=== PATIENT | female | born 1965 ===

== ENCOUNTER → 2025-04-01 13:39 | Outpatient (REF) | payer BC, SELFPAY | LOC: WDC 13:39 | PROVIDERS: ATTENDING PHYSICIAN Registered Nurse | DX: M85.839 Other specified disorders of bone density and structure, unspecified forearm (principal); Z12.31 Encounter for screening mammogram for malignant neoplasm of breast | CPT/HCPCS: 77063; 77067; 77080 ==

== ENCOUNTER → 2025-04-07 12:49 | Outpatient (REF) | payer BC, SELFPAY | LOC: RSP 12:49 | PROVIDERS: ATTENDING PHYSICIAN Registered Nurse | DX: R06.09 Other forms of dyspnea (principal) | CPT/HCPCS: 94727; 94729; 88738; 94010 ==

== ENCOUNTER 2025-04-25 11:27 | Inpatient (IN) | payer BC, SELFPAY ==
[2025-04-25] VITALS (11 sets, daily range): BP systolic 101–163; BP diastolic 60–84; BMI 39.5
--- NOTE | 2025-04-25 05:02 | ED.GENMED ---
History of Present Illness
<Sandrita Mike PA-C - Last Filed: 04/25/25 18:02>
General
Chief Complaint: Abdominal Pain
Source: patient
Exam Limitations: none
Time Seen by Provider: 04/25/25 05:00
Nursing documentation reviewed up to this point in time: agreed with
History of Present Illness
History of Present Illness:
This is a 65 y/o female with a past medical history of hypertension, hyperlipidemia who presents to the emergency department today with concerns of right upper quadrant abdominal pain since yesterday evening. Patient reports that she ate dinner
this evening and later noticed pain in her right abdomen. She thought that this was indigestion and so she took Tums and Pepcid and reported minimal relief. The pain will come and go. She then went to bed and woke up twice with the pain and
noticed that the pain was more constant now. She does report that it radiates to her right back. Denies any flank pain. She denies any hematuria, dysuria. She denies any fevers or chills. She currently denies any chest pain or shortness of
breath. She denies any lightheadedness, dizziness. She does have a past surgical history of gastric sleeve 20 years ago. She denies any history of cardiac disease. Patient states that she had pain similar to this a few years ago but it resolved on
its own.
Review of Systems
<Sandrita Mike PA-C - Last Filed: 04/25/25 18:02>
Review of Systems
All Other Systems: ROS reviewed and negative except as documented in HPI and ROS
Phy Exam
<Sandrita Mike PA-C - Last Filed: 04/25/25 18:02>
Physical Exam
Physical Exam:
General: Patient is well appearing and in no acute distress; non-toxic
Skin: Warm and dry, no rashes or lesions
Head: Normocephalic, atraumatic
Eyes: Sclera non-icteric. EOMs intact.
Cardiac: Regular rate and rhythm, no murmurs
Pulm: Normal respiratory effort, no wheezes, rales, rhonchi
Abdomen: +Hooker sign with guarding, no rebound tenderness; normoactive bowel sounds
Musculoskeletal: No chest wall tenderness to palpation, no palpable crepitus
Neuro: CN II-XII intact, no focal neurologic deficits.
Psychiatric: Appropriate mood and affect.
Course
<Sandrita Mike PA-C - Last Filed: 04/25/25 18:02>
Orders/Labs/Results
Orders:
Orders
04/25/25 04:59
Electrocardiogram (*1) Urgent
Reason for Study: Abdominal Pain
EKG- Treatment ONCE
IV Insert/Care/Rem.- Treatment PRN
04/25/25 05:02
Complete Blood Count/With Diff Urgent
Comprehensive Metabolic Panel Urgent
Lipase Urgent
04/25/25 05:18
Ketorolac [Toradol] 15 mg IV NOW STA
Ondansetron Injectable [Zofran] 4 mg IV NOW STA
04/25/25 05:29
CT Abd/pelvis W Iv Cont Urgent
Comment:
Reason For Exam: right upper quadrant pain
04/25/25 06:25
0.9% Sodium Chloride 500 ml [Nss] 500 ml IV BOLUS
04/25/25 06:48
Piperacillin/Tazo 4.5 Gram [Zosyn] 4.5 gram in 100 ml IV NOW
04/25/25 07:32
US Abdomen Limited Urgent
Reason For Exam: RUQ pain
04/25/25 Lunch
Clear Liquid
At Your Request: Limited Participation
04/25/25 10:46
HYDROmorphone [Dilaudid] 0.5 mg .ROUTE .ST-MED ONE
04/25/25 10:50
HYDROmorphone [Dilaudid] 0.5 mg IV NOW STA
04/25/25 10:58
Admit/Transfer Patient As Directed
Co-Sign Provider:
Level of Care: Inpatient admission
Assign to:: Medical/Surgical
Physician / Group: Devinky/Hospitalist
Diagnosis: Choledocholithiasis
Reason for Hospitalization: Choledocholithiasis
Expected length of stay greater than two midnights?: Yes
ELOS- Estimated Length of Stay in days: 4
I certify the patient meets the requirements for IP care: Yes
PRN Pain Medication Management As Directed
May give lesser potent ordered pain med per pt: Yes
preference::
Protocol:: Medication orders for pain may be administered in a
manner that supports deferring to patient preference
when the pt is:
- Requesting an ordered lesser potent pain medication.
Least to most potent pain medications are defined
as: acetaminophen < NSAID < tramadol < opioids
(morphine, oxycodone, hydromorphone).
- Requesting a lesser dose of the same medication IF
ORDERED.
- Requesting a less intrusive route of administration
if both routes are prescribed by the provider (PO <
IV).
04/25/25 11:02
Code Status As Directed
Resuscitation Status: Full Code
04/25/25 12:16
Bisacodyl [Dulcolax] 10 mg RECTAL [id number] PRN
Docusate W/Senna [Senokot-S] 1 tablet PO BIDPRN PRN
Polyethylene Glycol Powder [Miralax] 17 grams PO DAILYPRN PRN
04/25/25 12:16
Consult Surgery [SURGICAL CONSULT] Routine
Consulting Provider: Sina Collins
Was physician already notified: Yes
MRI Abdomen [MR Abdomen W/o & W Contrast] Routine
Comment: with MRCP
Reason For Exam: choledocholithiasis
Recent pill cam endoscopy?: No
Activity As Directed
Activity Level: Out of Bed-Early Mobility
Vital Signs As Directed
Frequency: Per unit guidelines
DX Deep Vein Thrombosis Video Routine
04/25/25 12:30
KCl 20 Meq/D5.45%Sodchl 1000ML [D5/0.45%NSS with KCL 20 MEQ] 20 meq in 1,000 ml IV 80 mls/hr
04/25/25 13:51
HYDROmorphone [Dilaudid] 0.5 mg IV Q3HPRN PRN
04/25/25 14:00
Piperacillin/Tazo 3.375 Gram [Zosyn] 3.375 gram in 50 ml IV Q6H
04/25/25 20:00
Heparin 5,000 units SC Q12
04/25/25 22:00
Diphenhydramine [Benadryl] 25 mg PO HS
Gabapentin [Neurontin] 300 mg PO HS
04/26/25 06:00
Complete Blood Count/No Diff IN AM
Comprehensive Metabolic Panel IN AM
Lipase IN AM
04/26/25 08:00
Ascorbic Acid [Vitamin C] 1,000 mg PO DAILY
Aspirin Low Dose EC [Aspir Low (Enteric Coated)] 81 mg PO DAILY
Loratadine [Claritin] 10 mg PO DAILY
Losartan [Cozaar] 25 mg PO DAILY
fluticasone propionate 1 spray NASAL DAILY
Abnormal Lab Results
04/25/25
05:02
WBC 11.9 H 10^3/uL
(4.8-10.8)
Absolute Neuts (auto) 9.9 H 10^3/uL
(1.4-6.5)
Absolute Lymphs (auto) 1.1 L 10^3/uL
(1.2-3.4)
Absolute Monos (auto) 0.8 H 10^3/uL
(0.1-0.6)
Neutrophils % 83.6 H %
(42.2-75.2)
Lymphocytes % 9.0 L %
(20.5-51.1)
Glucose 172 H mg/dl
(70-99)
Total Bilirubin 1.6 H mg/dl
(0.2-1.3)
AST 702 H* U/L
(14-36)
ALT 412 H U/L
(0-35)
Alkaline Phosphatase 163 H U/L
(38-126)
04/25/25 05:02
04/25/25 05:02
Vital Signs
Initial and Last Documented VS:
Initial Vital Signs
BP
163/84
04/25/25 05:01
Last Documented Vital Signs
Temp Pulse Resp BP Pulse Ox
98.3 F 59 18 122/64 97
04/25/25 12:15 04/25/25 12:15 04/25/25 12:15 04/25/25 12:15 04/25/25 12:15
<Jeremías Ramsey PA-C - Last Filed: 04/25/25 09:00>
Orders/Labs/Results
Orders:
Orders
04/25/25 04:59
Electrocardiogram (*1) Urgent
Reason for Study: Abdominal Pain
EKG- Treatment ONCE
IV Insert/Care/Rem.- Treatment PRN
04/25/25 05:02
Complete Blood Count/With Diff Urgent
Comprehensive Metabolic Panel Urgent
Lipase Urgent
04/25/25 05:18
Ketorolac [Toradol] 15 mg IV NOW STA
Ondansetron Injectable [Zofran] 4 mg IV NOW STA
04/25/25 05:29
CT Abd/pelvis W Iv Cont Urgent
Comment:
Reason For Exam: right upper quadrant pain
04/25/25 06:25
0.9% Sodium Chloride 500 ml [Nss] 500 ml IV BOLUS
04/25/25 06:48
Piperacillin/Tazo 4.5 Gram [Zosyn] 4.5 gram in 100 ml IV NOW
04/25/25 07:32
US Abdomen Limited Urgent
Reason For Exam: RUQ pain
04/25/25 Lunch
Clear Liquid
At Your Request: Limited Participation
04/25/25 10:46
HYDROmorphone [Dilaudid] 0.5 mg .ROUTE .STK-MED ONE
04/25/25 10:50
HYDROmorphone [Dilaudid] 0.5 mg IV NOW STA
04/25/25 10:58
Admit/Transfer Patient As Directed
Co-Sign Provider:
Level of Care: Inpatient admission
Assign to:: Medical/Surgical
Physician / Group: Mirsky/Hospitalist
Diagnosis: Choledocholithiasis
Reason for Hospitalization: Choledocholithiasis
Expected length of stay greater than two midnights?: Yes
ELOS- Estimated Length of Stay in days: 4
I certify the patient meets the requirements for IP care: Yes
PRN Pain Medication Management As Directed
May give lesser potent ordered pain med per pt: Yes
preference::
Protocol:: Medication orders for pain may be administered in a
manner that supports deferring to patient preference
when the pt is:
- Requesting an ordered lesser potent pain medication.
Least to most potent pain medications are defined
as: acetaminophen < NSAID < tramadol < opioids
(morphine, oxycodone, hydromorphone).
- Requesting a lesser dose of the same medication IF
ORDERED.
- Requesting a less intrusive route of administration
if both routes are prescribed by the provider (PO <
IV).
04/25/25 11:02
Code Status As Directed
Resuscitation Status: Full Code
04/25/25 12:16
Bisacodyl [Dulcolax] 10 mg RECTAL [id number] PRN
Docusate W/Senna [Senokot-S] 1 tablet PO BIDPRN PRN
Polyethylene Glycol Powder [Miralax] 17 grams PO DAILYPRN PRN
04/25/25 12:16
Consult Surgery [SURGICAL CONSULT] Routine
Consulting Provider: Sina Collins
Was physician already notified: Yes
MRI Abdomen [MR Abdomen W/o & W Contrast] Routine
Comment: with MRCP
Reason For Exam: choledocholithiasis
Recent pill cam endoscopy?: No
Activity As Directed
Activity Level: Out of Bed-Early Mobility
Vital Signs As Directed
Frequency: Per unit guidelines
DX Deep Vein Thrombosis Video Routine
04/25/25 12:30
KCl 20 Meq/D5.45%Sodchl 1000ML [D5/0.45%NSS with KCL 20 MEQ] 20 meq in 1,000 ml IV 80 mls/hr
04/25/25 13:51
HYDROmorphone [Dilaudid] 0.5 mg IV Q3HPRN PRN
04/25/25 14:00
Piperacillin/Tazo 3.375 Gram [Zosyn] 3.375 gram in 50 ml IV Q6H
04/25/25 20:00
Heparin 5,000 units SC Q12
04/25/25 22:00
Diphenhydramine [Benadryl] 25 mg PO HS
Gabapentin [Neurontin] 300 mg PO HS
04/26/25 06:00
Complete Blood Count/No Diff IN AM
Comprehensive Metabolic Panel IN AM
Lipase IN AM
04/26/25 08:00
Ascorbic Acid [Vitamin C] 1,000 mg PO DAILY
Aspirin Low Dose EC [Aspir Low (Enteric Coated)] 81 mg PO DAILY
Loratadine [Claritin] 10 mg PO DAILY
Losartan [Cozaar] 25 mg PO DAILY
fluticasone propionate 1 spray NASAL DAILY
Abnormal Lab Results
04/25/25
05:02
WBC 11.9 H 10^3/uL
(4.8-10.8)
Absolute Neuts (auto) 9.9 H 10^3/uL
(1.4-6.5)
Absolute Lymphs (auto) 1.1 L 10^3/uL
(1.2-3.4)
Absolute Monos (auto) 0.8 H 10^3/uL
(0.1-0.6)
Neutrophils % 83.6 H %
(42.2-75.2)
Lymphocytes % 9.0 L %
(20.5-51.1)
Glucose 172 H mg/dl
(70-99)
Total Bilirubin 1.6 H mg/dl
(0.2-1.3)
AST 702 H* U/L
(14-36)
ALT 412 H U/L
(0-35)
Alkaline Phosphatase 163 H U/L
(38-126)
04/25/25 05:02
04/25/25 05:02
Vital Signs
Initial and Last Documented VS:
Initial Vital Signs
BP
163/84
04/25/25 05:01
Last Documented Vital Signs
Temp Pulse Resp BP Pulse Ox
98.3 F 59 18 122/64 97
04/25/25 12:15 04/25/25 12:15 04/25/25 12:15 04/25/25 12:15 04/25/25 12:15
Melanilt;Sandrita Mike PA-C - Last Filed: 04/25/25 18:02>
MDM/Problems Addressed
Differential Diagnosis Includes:
Differential include acute cholecystitis, biliary colic, ACS, pancreatitis, gastritis
MDM/Problems Addressed:
This is a 65 y/o female with a past medical history of hypertension, hyperlipidemia who presents to the emergency department today with concerns of right upper quadrant abdominal pain since yesterday evening. Patient reports that she ate dinner
this evening and later noticed pain in her right abdomen. It has been getting progressively worse. Physical exam she is well-appearing no acute distress she is afebrile, she does have a positive Hooker's sign. Will send for ultrasound. Lab work
concerning for acute cholecystitis.
Update, ultrasound team will have to be called in; to avoid delay in care, will send for CT scan.
Case signed out to Wilbur DIAZ.
<Sandrita Mike PA-C - Last Filed: 04/25/25 18:02>
*Pulse Oximetry
Patient hypoxic: no
*EKG
Interpreted by ED Provider?: Yes
EKG Intrepretation Date: 04/25/25
Interpretation: abnormal
Comparison EKG: no comparison EKG present
Heart Rate: 57
Rate: normal
Rhythm: sinus
[place]: left axis deviation
*Critical Care Note
Total Time (30-74mins, 75-104mins- exclusive of procedures): Not Applicable
Data Reviewed
Review of Other/Old Records Reveals: Records (no prior ER physician documentation to review, no discharge summaries to review )
Source: patient and records
<Jeremías Ramsey PA-C - Last Filed: 04/25/25 09:00>
Update Note
Update Note:
Received care of patient upon signout pending CT. Patient here with right upper quadrant pain. She has elevated liver functions. CT demonstrates findings suggestive of possible early cholecystitis. Spoke with general surgery who recommended
obtaining ultrasound which was obtained. Ultrasound shows some sludge in the gallbladder with tiny stones. Negative sonographic Hooker sign. General surgery recommends admit to medicine for MRCP for evaluation of possible choledocholithiasis.
Hospitalist made aware
ED Attending Note
<Sandrita Mike PA-C - Last Filed: 04/25/25 18:02>
-
Portions of this chart may have been created with voice recognition software.� Occasional wrong word or��sound alike� substitutions may have occurred due to the inherent limitations of voice recognition software.
Discharge Plan
Departure
Patient Disposition: Admit
Date of Disposition: 04/25/25
Time of Disposition: 08:59
Presentation/result/management discussed w/ accepting MD/DO: Hospitalist
Discharge Problem:
Abdominal pain, Elevated LFTs
Interventions
Interventions:
*Risk Screen - Suicide Last Done: 04/25/25 05:02
*General Assessment Last Done: 04/25/25 05:02
*Neglect/Abuse Screening Last Done: 04/25/25 05:02
*ED- Fall Risk Assessment Last Done: 04/25/25 05:02
*ED COVID-19 Vaccine History Last Done: 04/25/25 05:02
*Nursing Disposition Last Done: 04/25/25 12:10
ZJ-Rwwtdi-Uodfbtwhsd Assessment Last Done: 04/25/25 06:37
Discharge Date and Time
Discharge Date/Time: 04/25/25 12:10
[2025-04-25 05:12] LABS: % Basophils 0.3 % (0-2); % Immature Granulocytes 0.3 % (0-0.5); % Monocytes 6.8 % (1.7-9.3); % Neutrophils 83.6 % (42.2-75.2); Absolute Lymphocytes 1.1 10^3/uL (1.2-3.4); Absolute Monocytes 0.8 10^3/uL (0.1-0.6); Absolute Neutrophils 9.9 10^3/uL (1.4-6.5); Hematocrit 39.8 % (37.0-47.0); Hemoglobin 13.5 g/dL (12.0-16.0); Mean Corp Hgb Conc. 33.9 g/dL (33.0-37.0); Mean Corpuscular Hgb 30.7 pg (27.0-31.0); Mean Corpuscular Volume 90.5 fL (81.0-99.0); Mean Platelet Volume 9.4 fL (7.4-10.4); Nucleated Red Blood Cells % 0 %; Platelet Count 201 10^3/uL (130-400); Red Cell Dist. Width 12.5 % (11.5-14.5); White Blood Cell Count 11.9 10^3/uL (4.8-10.8)
[2025-04-25] MEDS: ZOFRAN 4 MG IV (05:27)
[2025-04-25] MEDS: TORADOL 15 MG IV (05:28)
[2025-04-25 06:14] LABS: ALT (SGPT) 412 U/L (0-35); AST (SGOT) 702 U/L (14-36); Albumin 3.9 g/dl (3.5-5.0); Alkaline Phosphatase 163 U/L (38-126); Blood Urea Nitrogen 13 mg/dl (7-17); Calcium 9.4 mg/dl (8.4-10.2); Carbon Dioxide 28 mmol/L (22-30); Chloride 107 mmol/L (98-107); Estimated Creatinine Clearance 98 ml/min; Glucose 172 mg/dl (70-99); Lipase 77 U/L (23-300); Sodium 141 mmol/L (135-145); Total Bilirubin 1.6 mg/dl (0.2-1.3); Total Protein 6.3 g/dl (6.3-8.2); eGFR > 60.00
--- NOTE | 2025-04-25 06:48 | EDRN ---
Pt in CT scan at this time.
[2025-04-25] MEDS: NSS 500 IV (06:59)
--- NOTE | 2025-04-25 06:59 | EDRN ---
Pt OOB to BR on return from CT scan.
[2025-04-25] MEDS: ZOSYN 100 IV (07:06)
--- NOTE | 2025-04-25 09:19 | EDRN ---
Pt OOB to BR. Pain remains 2/10 at this time. Pt appears very comfortable at this time. Chatting w/ daughter in room.
--- NOTE | 2025-04-25 10:42 | EDRN ---
Pt stated her pain is increasing. Ilda JOHNSON informed and is ordering a 0.5 mg of dilaudid at this time.
--- NOTE | 2025-04-25 10:45 | W.PN.HOSP.TC ---
Today's Communication/Plan
-
MRCP
Assessment / Plan
Assessment / Plan
Sudden onset RUQ abdominal pain with elevated LFT's
Concern for Choledocholithiasis
Consult placed to Gen Surg, discussed with Dr. Collins
requesting MRCP, will order discussed with GI, preference would be MRI with MRCP will order and consult GI post MRCP
CT abd: Cannot exclude some minimal high attenuation density in the gallbladder such as sludge and/or tiny stones. Please see separate concurrent Limited Abdominal Ultrasound report. No findings to suggest biliary tract dilatation.
Mild hepatomegaly with possible mild diffuse fatty liver.
Bilateral renal cysts and subcentimeter low-attenuation renal lesions too small to characterize.
Distal colonic diverticulosis.
Abd US: Low level echogenic material within the gallbladder compatible with sludge and/or tiny stones. No gallbladder wall thickening or biliary tract dilatation. Negative sonographic Hooker's sign.
Mild hepatomegaly with possible mild diffuse fatty liver.
Hx of Gastric Sleeve procedure ~20 yrs [employer] in [place]
lost ~100 lbs and gained back 15-30 lbs since
S/P Rt hip and knee replacement
P:IVF
clear liquids
surgery consult
empiric abx
Pending MRCP consider GI consult
Full code
see dictated note
Anticipated Discharge: > 48 hours
Subjective/Interval History
-
Date of Service: April 25, 2025
RUQ abdominal pain onset ~3 PM 04/24, became overwhelmingly severe ~4:30 AM today
Objective Data
-
Labs:
Laboratory Results
04/25/25
05:02
WBC 11.9 H
Hgb 13.5
Hct 39.8
Plt Count 201
Sodium 141
Potassium 4.0
Chloride 107
Carbon Dioxide 28
BUN 13
Creatinine 0.6
Glucose 172 H
Calcium 9.4
Total Bilirubin 1.6 H
AST 702 H*
ALT 412 H
Alkaline Phosphatase 163 H
Vital Signs:
Vital Signs
Temp Pulse Resp BP Pulse Ox
98.1 F 82 19 115/63 96
04/25/25 05:02 04/25/25 10:00 04/25/25 10:00 04/25/25 10:00 04/25/25 10:00
Review of Systems
-
History Source: Patient and Family (dgt at bedside)
Constitutional: Denies Fever
EENT: Reports No Symptoms Reported
Respiratory: Reports No Symptoms
Cardiac: Reports No Symptoms
Abdomen/GI: Reports Abdominal Pain (better now); Denies Nausea, Vomiting or Diarrhea
Genitourinary: Reports No Symptoms
Musculoskeletal: Reports No Symptoms
Neuro: Reports No Symptoms
Physical Exam
-
General: Well Developed, Well Nourished and No Apparent Distress
HEENT: Normocephalic, Atraumatic and Moist Mucous Membranes
Respiratory: Clear to Auscultation; Negative Wheezes, Rales or Rhonchi
Cardiac: Regular Rhythm and S1/S2
GI: Soft and Nontender (to light pressure currently, was tender on arrival in ER)
Genito-urinary: No Costovertebral Tender
Musculoskeletal: No Clubbing, No Cyanosis and No Edema
Neuro: Awake, Alert and Oriented
[2025-04-25] MEDS: DILAUDID 0.5 MG IV (10:51)
--- NOTE | 2025-04-25 11:46 | EDRN ---
Dr. Collins in room w/ pt at this time.
--- NOTE | 2025-04-25 12:05 | EDRN ---
Pt off cardiac monitoring at this time. [facility] PCT called to take pt to admission bed at this time.
--- NOTE | 2025-04-25 12:18 | CON.GS ---
Consultation
-
Date/Time Consultation Performed: 04/25/2025 11:50 AM
Performing Provider: Karina
Reason for Consultation: Abdominal pain
Medical History
-
Chief Complaint: Abdominal pain
History of Present Illness:
Patient is a 60-year-old female with a past abdominal surgical history notable for open Yeni-en-Y gastric bypass procedure in the early from which she recovered uneventfully and without any postoperative complications.
She developed the acute onset of abdominal pain at 3 to 4 PM yesterday afternoon but does not recall any specific dietary indiscretion before her symptoms started. Abdominal pain increased in severity overnight and localized to the right upper
quadrant/epigastrium with radiation towards her back. Nausea and anorexia but no vomiting. Her bowels have been recently moving regularly. No fevers chills or sweats. No dark tea colored urine or acholic stools.
She recalls a similar episode of abdominal pain about 10 years ago which prompted emergency department evaluation but states that the workup was negative and her symptoms subsided without return symptoms.
Past Medical History
Past Medical History: Other (Hypercholesterolemia, obesity with BMI of 39, hypertension)
Past Surgical History: Bariatric (Yeni-en-Y gastric bypass-open; early 1999) and (X 2)
Social History
Tobacco: Non-Smoker
Family History
Family History: Reviewed & Not Pertinent
Allergies / Home Medications
Allergy/AdvReac Type Severity Reaction Status Date / Time
No Known Allergies Allergy Unverified 04/25/25 04:58
�Medication �Instructions �Recorded �Confirmed �Type
ascorbic acid (vitamin C) 1,000 mg 1,000 mg PO DAILY Supplement 04/25/25 04/25/25 History
tablet (Vitamin C)
aspirin 81 mg tablet,delayed 81 mg PO DAILY Blood Clot 04/25/25 04/25/25 History
release Prevention/Tx
atorvastatin 40 mg tablet 40 mg PO DAILY High Cholesterol 04/25/25 04/25/25 History
calcium 600 mg (as 1 tab PO DAILY Supplement 04/25/25 04/25/25 History
carbonate)-vitamin D3 5 mcg (200
unit) tablet
cyanocobalamin (vitamin B-12) 500 500 mcg PO Q48H Supplement 04/25/25 04/25/25 History
mcg tablet (Vitamin B-12)
diphenhydramine HCl 25 mg capsule 25 mg PO HS Sleep 04/25/25 04/25/25 History
(ZzzQuil)
famotidine 20 mg tablet (Pepcid) 20 mg PO DAILY Gastrointestinal 04/25/25 04/25/25 History
Issue
ferrous sulfate 325 mg (65 mg 325 mg PO DAILY Supplement 04/25/25 04/25/25 History
iron) tablet
fluticasone propionate 50 1 spray intranasal DAILY Congestion 04/25/25 04/25/25 History
mcg/actuation nasal
spray,suspension
gabapentin 100 mg capsule 300 mg PO HS Pain 04/25/25 04/25/25 History
loratadine 10 mg tablet 10 mg PO DAILY Allergies 04/25/25 04/25/25 History
losartan 25 mg tablet 25 mg PO DAILY Blood Pressure 04/25/25 04/25/25 History
multivitamin-ferrous 1 tab PO DAILY Supplement 04/25/25 04/25/25 History
fumarate-folic acid 18 mg-400 mcg
tablet (Centrum)
vitamin E 100 unit tablet 180 unit PO DAILY Supplement 04/25/25 04/25/25 History
Review of Systems
-
A 10 point review of systems was completed, and was negative except as per HPI.
Physical Exam
Vital Signs
Temp Pulse Resp BP Pulse Ox
98.1 F 60 12 105/60 96
04/25/25 05:02 04/25/25 12:00 04/25/25 12:00 04/25/25 12:00 04/25/25 12:00
04/24/25 04/25/25 04/26/25
06:59 06:59 06:59
Actual Weight 91.7 kg
Body Mass Index (BMI) 39.5
Lab Results
04/25/25 05:02
04/25/25 05:02
WBC 11.9 10^3/uL (4.8-10.8) H 04/25/25 05:02
Hgb 13.5 g/dL (12.0-16.0) 04/25/25 05:02
Hct 39.8 % (37.0-47.0) 04/25/25 05:02
Plt Count 201 10^3/uL (130-400) 04/25/25 05:02
Abs Immat Gran (auto) 0.0 10^3/uL (0-0.05) 04/25/25 05:02
Neutrophils % 83.6 % (42.2-75.2) H 04/25/25 05:02
Physical Exam
General: Well Developed, Well Nourished, No Apparent Distress, Comfortable and Other (Lying in stretcher in the emergency department. Daughter at bedside.)
HEENT: Normocephalic, Anicteric and Moist Mucous Membranes
Respiratory: Non Labored Respirations
Cardiac: Regular Rhythm
GI: Soft, Non Distended, Tender (Epigastrium and right upper quadrant but no rebound rigidity or guarding) and Other (Upper midline laparotomy surgical scar)
Skin: Warm
Neuro: AO x 3
Psych: Calm
Data Reviewed
-
CT Scan: Image Personally Visualized and interpreted, Report Reviewed by me, Discussed with Physician, Discussed with Patient and Discussed with Family
Ultrasound: Image Personally Visualized and interpreted, Report Reviewed by me, Discussed with Physician, Discussed with Patient and Discussed with Family
Labs: Labs Reviewed by me, Discussed with Patient and Discussed with Family
Assessment / Plan
-
Assessment: 60-year-old female with remote history of open Yeni-en-Y gastric bypass presenting with probable biliary colic; possible acute calculus cholecystitis, possible choledocholithiasis.
Ultrasound confirmed sludge and gravel like stones. No gallbladder wall thickening or pericholecystic edema. Common bile duct 5 mm. No biliary ductal dilation. On CT imaging the gallbladder does not appear to be tensely distended and there are
no clear signs of pericholecystic edema/inflammation. Some layering sludge in the fundus. Postop changes consistent with Yeni-en-Y gastric bypass.
Secondary leukocytosis and elevated AST, ALT and alkaline phosphatase and mild bump in total bilirubin.
Plan: Further evaluation with MRCP for possible choledocholithiasis
Clear liquid diet today -n.p.o. after midnight as further interventions and recommendations will be pending MRCP
Zosyn for empiric biliary coverage
IV fluids and supportive care
Will follow. Discussed with hospitalist. Reviewed surgical recommendations and workup with patient and her daughter at bedside.
--- NOTE | 2025-04-25 12:25 | PTCARENOTE ---
Pt arrived to 2S via stretcher, ambulated to room independently, gait steady. Full assessment completed. CLD and plan of care reviewed with pt and daughter. Pt educated on clear liquid diet, verbalized understanding. Bed locked and in the lowest
position, safety maintained. Oriented to room and call joce mas at bedside.
[2025-04-25] MEDS: ZOSYN 50 IV ×2 (13:04→19:44)
[2025-04-25] MEDS: D5/0.45%NSS with KCL 20 MEQ 1000 IV (13:04)
[2025-04-25] MEDS: TYLENOL 650 MG PO (17:56)
[2025-04-25] MEDS: HEPARIN 5000 UNITS SC (19:44)
[2025-04-25] MEDS: BENADRYL 25 MG PO (21:09)
[2025-04-25] MEDS: NEURONTIN 300 MG PO (21:09)
[2025-04-26] MEDS: ZOSYN 50 IV ×4 (01:09→20:09)
[2025-04-26] MEDS: D5/0.45%NSS with KCL 20 MEQ 1000 IV ×2 (03:13→17:19)
[2025-04-26] MEDS: TYLENOL 650 MG PO ×2 (03:15→10:53)
[2025-04-26 07:20] VITALS: BP 115/72
[2025-04-26 07:22] LABS: Hematocrit 38.2 % (37.0-47.0); Hemoglobin 12.4 g/dL (12.0-16.0); Mean Corp Hgb Conc. 32.5 g/dL (33.0-37.0); Mean Corpuscular Hgb 30.5 pg (27.0-31.0); Mean Corpuscular Volume 94.1 fL (81.0-99.0); Mean Platelet Volume 9.6 fL (7.4-10.4); Platelet Count 196 10^3/uL (130-400); Red Blood Cell Count 4.06 10^6/uL (4.20-5.40); Red Cell Dist. Width 12.8 % (11.5-14.5); White Blood Cell Count 6.3 10^3/uL (4.8-10.8)
[2025-04-26 08:30] LABS: ALT (SGPT) 351 U/L (0-35); AST (SGOT) 299 U/L (14-36); Albumin 3.4 g/dl (3.5-5.0); Alkaline Phosphatase 138 U/L (38-126); Blood Urea Nitrogen 10 mg/dl (7-17); Calcium 9.1 mg/dl (8.4-10.2); Carbon Dioxide 28 mmol/L (22-30); Chloride 111 mmol/L (98-107); Estimated Creatinine Clearance 98 ml/min; Glucose 108 mg/dl (70-99); Lipase 42 U/L (23-300); Potassium 4.3 mmol/L (3.5-5.1); Sodium 142 mmol/L (135-145); Total Bilirubin 0.7 mg/dl (0.2-1.3); Total Protein 5.6 g/dl (6.3-8.2); eGFR > 60.00
[2025-04-26] MEDS: CLARITIN 10 MG PO (09:13)
[2025-04-26] MEDS: VITAMIN C 1000 MG PO (09:13)
[2025-04-26] MEDS: ASPIR LOW (ENTERIC COATED) 81 MG PO (09:13)
[2025-04-26] MEDS: COZAAR 25 MG PO (09:14)
[2025-04-26] MEDS: HEPARIN 5000 UNITS SC ×2 (09:14→20:08)
--- NOTE | 2025-04-26 09:15 | CM ---
CM reviewed medical records. CM met with patient and daughter in room. Patient confirmed demographics. Patient lives independent, but lives with daughter in an in law suite. Patient has had a history of VN, but is currently not on service. Patient
does not have a history of SNF. Patient is active with her PCP. Patient uses [facility] for medication services.
PLAN: Home no needs, lives with daughter.
--- NOTE | 2025-04-26 11:02 | W.PN.HOSP.TC ---
Today's Communication/Plan
-
continue IVF
potential surgical intervention 04/27
Assessment / Plan
Assessment / Plan
Sudden onset RUQ abdominal pain with elevated LFT's
Concern for Choledocholithiasis
WBC 11.9-->6.3
Bili 1.6-->0.7
AST 702-->299
ALT 412-->351
Alk Phos 163-->138
improving LFT's, consistent with passed stone
Consult placed to Gen Surg, discussed with Dr. Lancaster, potential surgical intervention 04/27
he told me he will review MRCP and decide if needs to get interventional GI consulted
requesting MRCP, will order discussed with GI, preference would be MRI with MRCP: Small foci of decreased T2-weighted signal within the dependent posterior portion of the gallbladder, compatible with small stones and sludge or sludge.
Thin rim of increased T2-weighted signal surrounding the gallbladder lumen, compatible with gallbladder wall thickening and/or pericholecystic edema. In the correct clinical setting, these findings are suggestive of acute cholecystitis.
No evidence for biliary ductal dilation. The common bile duct measures up to 5.5 mm. There is no evidence for bile duct calculus.
Bilateral renal cysts, mainly central parapelvic cysts.
CT abd: Cannot exclude some minimal high attenuation density in the gallbladder such as sludge and/or tiny stones. Please see separate concurrent Limited Abdominal Ultrasound report. No findings to suggest biliary tract dilatation.
Mild hepatomegaly with possible mild diffuse fatty liver.
Bilateral renal cysts and subcentimeter low-attenuation renal lesions too small to characterize.
Distal colonic diverticulosis.
Abd US: Low level echogenic material within the gallbladder compatible with sludge and/or tiny stones. No gallbladder wall thickening or biliary tract dilatation. Negative sonographic Hooker's sign.
Mild hepatomegaly with possible mild diffuse fatty liver.
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
lost ~100 lbs and gained back 15-30 lbs since
S/P Rt hip and knee replacement
P:IVF
clear liquids
surgery consult appreciated
empiric abx
Full code
Anticipated Discharge: > 48 hours
Subjective/Interval History
-
Date of Service: April 26, 2025
No pain this morning, but remains on clear liquids
Objective Data
-
Labs:
Laboratory Results
04/26/25
06:36
WBC 6.3
Hgb 12.4
Hct 38.2
Plt Count 196
Sodium 142
Potassium 4.3
Chloride 111 H
Carbon Dioxide 28
BUN 10
Creatinine 0.6
Glucose 108 H
Calcium 9.1
Total Bilirubin 0.7
AST 299 H
ALT 351 H
Alkaline Phosphatase 138 H
Vital Signs:
Vital Signs
Temp Pulse Resp BP Pulse Ox
98.1 F 73 18 115/72 95
04/26/25 07:20 04/26/25 07:20 04/26/25 07:20 04/26/25 07:20 04/26/25 07:20
I&O
04/25/25 04/26/25 04/27/25
06:59 06:59 06:59
Intake Total 2340 / 2340 50 / 50
Balance 2340 / 2340 50 / 50
Review of Systems
-
History Source: Patient and Coordinated Provider
Constitutional: Denies Fever
EENT: Reports No Symptoms Reported
Respiratory: Reports No Symptoms
Cardiac: Reports No Symptoms
Abdomen/GI: Reports Abdominal Pain (better now, none currently); Denies Nausea, Vomiting or Diarrhea
Genitourinary: Reports No Symptoms
Musculoskeletal: Reports No Symptoms
Neuro: Reports No Symptoms
Physical Exam
-
General: Well Developed, Well Nourished and No Apparent Distress
HEENT: Normocephalic, Atraumatic and Moist Mucous Membranes
Respiratory: Clear to Auscultation; Negative Wheezes, Rales or Rhonchi
Cardiac: Regular Rhythm and S1/S2
GI: Soft and Nontender (none currently, was tender on arrival in ER)
Genito-urinary: No Costovertebral Tender
Musculoskeletal: No Clubbing, No Cyanosis and No Edema
Neuro: Awake, Alert and Oriented
[2025-04-26 15:35] VITALS: BP 136/75
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
[2025-04-26] MEDS: NEURONTIN 300 MG PO (21:57)
[2025-04-26] MEDS: BENADRYL 25 MG PO (21:57)
[2025-04-26 22:55] VITALS: BP 136/79
[2025-04-27] VITALS (12 sets, daily range): BP systolic 122–149; BP diastolic 61–86
[2025-04-27] MEDS: ZOSYN 50 IV ×3 (02:47→20:34)
[2025-04-27] MEDS: D5/0.45%NSS with KCL 20 MEQ 1000 IV (06:34)
[2025-04-27 07:19] LABS: Hematocrit 35.7 % (37.0-47.0); Hemoglobin 11.8 g/dL (12.0-16.0); Mean Corp Hgb Conc. 33.1 g/dL (33.0-37.0); Mean Corpuscular Hgb 30.5 pg (27.0-31.0); Mean Corpuscular Volume 92.2 fL (81.0-99.0); Mean Platelet Volume 9.8 fL (7.4-10.4); Platelet Count 198 10^3/uL (130-400); Red Blood Cell Count 3.87 10^6/uL (4.20-5.40); Red Cell Dist. Width 12.4 % (11.5-14.5); White Blood Cell Count 5.9 10^3/uL (4.8-10.8)
[2025-04-27 07:57] LABS: ALT (SGPT) 241 U/L (0-35); AST (SGOT) 97 U/L (14-36); Albumin 3.2 g/dl (3.5-5.0); Alkaline Phosphatase 154 U/L (38-126); Blood Urea Nitrogen 6 mg/dl (7-17); Calcium 8.6 mg/dl (8.4-10.2); Carbon Dioxide 24 mmol/L (22-30); Chloride 113 mmol/L (98-107); Estimated Creatinine Clearance 98 ml/min; Glucose 102 mg/dl (70-99); Potassium 3.9 mmol/L (3.5-5.1); Sodium 143 mmol/L (135-145); Total Bilirubin 0.8 mg/dl (0.2-1.3); Total Protein 5.3 g/dl (6.3-8.2); eGFR > 60.00
--- NOTE | 2025-04-27 08:46 | W.PN.HOSP.TC ---
Today's Communication/Plan
-
for laney with intraoperative cholangiogram today
Assessment / Plan
Assessment / Plan
Sudden onset RUQ abdominal pain with elevated LFT's
Concern for Choledocholithiasis
WBC 11.9-->6.3
Bili 1.6-->0.7-->0.8
AST 702-->299-->97
ALT 412-->351-->241
Alk Phos 163-->138-->154
improving LFT's, consistent with passed stone
Consult placed to Gen Surg, discussed with Dr. Lancaster, potential surgical intervention 04/27
reviewed MRCP results with Dr. Lancaster
MRI with MRCP: Small foci of decreased T2-weighted signal within the dependent posterior portion of the gallbladder, compatible with small stones and sludge or sludge.
Thin rim of increased T2-weighted signal surrounding the gallbladder lumen, compatible with gallbladder wall thickening and/or pericholecystic edema. In the correct clinical setting, these findings are suggestive of acute cholecystitis.
No evidence for biliary ductal dilation. The common bile duct measures up to 5.5 mm. There is no evidence for bile duct calculus.
Bilateral renal cysts, mainly central parapelvic cysts.
CT abd: Cannot exclude some minimal high attenuation density in the gallbladder such as sludge and/or tiny stones. Please see separate concurrent Limited Abdominal Ultrasound report. No findings to suggest biliary tract dilatation.
Mild hepatomegaly with possible mild diffuse fatty liver.
Bilateral renal cysts and subcentimeter low-attenuation renal lesions too small to characterize.
Distal colonic diverticulosis.
Abd US: Low level echogenic material within the gallbladder compatible with sludge and/or tiny stones. No gallbladder wall thickening or biliary tract dilatation. Negative sonographic Hokoer's sign.
Mild hepatomegaly with possible mild diffuse fatty liver.
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
lost ~100 lbs and gained back 15-30 lbs since
S/P Rt hip and knee replacement
P:IVF
for cholecystectomy today
surgery consult appreciated
empiric abx
Full code
Anticipated Discharge: 24 - 48 hours
Subjective/Interval History
-
Date of Service: April 27, 2025
In good spirits for planned cholecystectomy
Objective Data
-
Labs:
Laboratory Results
04/27/25
06:17
WBC 5.9
Hgb 11.8 L
Hct 35.7 L
Plt Count 198
Sodium 143
Potassium 3.9
Chloride 113 H
Carbon Dioxide 24
BUN 6 L
Creatinine 0.6
Glucose 102 H
Calcium 8.6
Total Bilirubin 0.8
AST 97 H
ALT 241 H
Alkaline Phosphatase 154 H
Vital Signs:
Vital Signs
Temp Pulse Resp BP Pulse Ox
99.3 F 68 18 134/81 97
04/27/25 07:30 04/27/25 07:30 04/27/25 07:30 04/27/25 07:30 04/27/25 07:30
I&O
04/26/25 04/27/25 04/28/25
06:59 06:59 06:59
Intake Total 2340 / 2340 2660 / 2660
Balance 2340 / 2340 2660 / 2660
Review of Systems
-
History Source: Patient and Coordinated Provider
Constitutional: Denies Fever
EENT: Reports No Symptoms Reported
Respiratory: Reports No Symptoms
Cardiac: Reports No Symptoms
Abdomen/GI: Reports Abdominal Pain (better now, none currently); Denies Nausea, Vomiting or Diarrhea
Genitourinary: Reports No Symptoms
Musculoskeletal: Reports No Symptoms
Neuro: Reports No Symptoms
Physical Exam
-
General: Well Developed, Well Nourished and No Apparent Distress
HEENT: Normocephalic, Atraumatic and Moist Mucous Membranes
Respiratory: Clear to Auscultation; Negative Wheezes, Rales or Rhonchi
Cardiac: Regular Rhythm and S1/S2
GI: Soft and Nontender (none currently, was tender on arrival in ER)
Genito-urinary: No Costovertebral Tender
Musculoskeletal: No Clubbing, No Cyanosis and No Edema
Neuro: Awake, Alert and Oriented
[2025-04-27] MEDS: ZOSYN IV (10:01)
--- NOTE | 2025-04-27 10:30 | CM ---
CM reviewed medical records. Patient is for OR today. CM will continue to follow.
--- NOTE | 2025-04-27 11:45 | W.IMMPOSTOP ---
Surgical Immed Post Op Note
-
Primary Surgeon: Anisha
Assisting Surgeon: ELIZABETH Leslie
Pre-op Diagnosis: Symptomatic cholelithiasis
Post-op Diagnosis: Symptomatic cholelithiasis
Procedure Performed: Laparoscopic cholecystectomy with IOC
Anesthesia Type: General
Specimen / Cultures:
1. Gallbladder
Estimated Blood Loss: 7 cc
Complications: None
Operative Findings:
1. Distended GB, mild chronic wall thickening, omental adhesions, fine sediment within bile
2. Critical view of safety
3. IOC with anatomy confirmed and no filling defects
--- NOTE | 2025-04-27 12:20 | TRANSFER ---
Patient returned to her room from [facility] post laparoscopic cholecystectomy with cholangiogram.The patient is alert and orirented.She denies any pain.Vital signs are stable.All 5 lap sites are open to air without drainage.The patient is in her bed with
the call mas in reach.
--- NOTE | 2025-04-27 15:56 | DOWNTIME ---
There was a [employer] Downtime on 04/27/2025 from 1230 to 04/27/2025 at 1550. Downtime documentation of patient's care, including medication administrations, has been reconciled in the electronic record per guidelines. Refer to the
patient's paper chart under the miscellaneous tab to see printed paper medication records and downtime forms.
[2025-04-27] MEDS: ASPIR LOW (ENTERIC COATED) 81 MG PO (15:59)
[2025-04-27] MEDS: HEPARIN SC (15:59)
[2025-04-27] MEDS: CLARITIN 10 MG PO (16:00)
[2025-04-27] MEDS: VITAMIN C 1000 MG PO (16:00)
[2025-04-27] MEDS: COZAAR 25 MG PO (16:00)
[2025-04-27] MEDS: LOVENOX 40 MG SC (17:48)
[2025-04-27] MEDS: D5/0.45%NSS with KCL 20 MEQ IV (20:34)
[2025-04-27] MEDS: BENADRYL 25 MG PO (22:03)
[2025-04-27] MEDS: NEURONTIN 300 MG PO (22:03)
[2025-04-27] MEDS: DILAUDID 0.5 MG IV (22:06)
[2025-04-28] MEDS: ZOSYN 50 IV (02:37)
[2025-04-28 03:11] VITALS: BP 135/70
--- NOTE | 2025-04-28 07:05 | W.PN.GS2 ---
Today's Communication / Plan
-
-- LFD
-- Pain control: Tylenol and Oxycodone
-- DC IV
-- F/u AM labs
-- OK for DC from surgical perspective pending above
Assessment / Plan
-
Patient is a 60 yo F likely presenting with choledocholithiasis versus biliary colic in the setting of a prior open RYGB
POD#1 s/p laparoscopic cholecystectomy with IOC
AVSS
Labs pending
Recovering well. No postoperative concerns.
-- LFD
-- Pain control: Tylenol and Oxycodone
-- DC IV
-- Abx: None further needed from GS perspective
-- Home meds
-- DVT: Lovenox
-- F/u AM labs
-- OK for DC from surgical perspective pending above
Subjective Data
-
Date of Service: April 28, 2025
No major complaints. Pain overall well-controlled, does note some soreness with movement. Tolerated diet, no nausea or vomiting. No fevers. Voiding. Ambulating.
Objective Data
-
Intake and Output
04/27/25 04/28/25 04/29/25
06:59 06:59 06:59
Intake Total 2660 / 2660 530 / 530
Balance 2660 / 2660 530 / 530
Intake:
Oral fluids 720 / 720 380 / 380
IV fluids (Total) 1840 / 1840 50 / 50
normosol 50 / 50
IV piggybacks 100 / 100 100 / 100
Other:
Number of approximated MODERATE 3 2
amounts of urine
Vital Signs
Temp Pulse Resp BP Pulse Ox
98.1 F 65 16 135/70 96
04/28/25 03:11 04/28/25 03:11 04/28/25 03:11 04/28/25 03:11 04/28/25 03:11
Calcium 8.6 mg/dl (8.4-10.2) 04/27/25 06:17
Total Bilirubin 0.8 mg/dl (0.2-1.3) 04/27/25 06:17
AST 97 U/L (14-36) H 04/27/25 06:17
ALT 241 U/L (0-35) H 04/27/25 06:17
Alkaline Phosphatase 154 U/L (38-126) H 04/27/25 06:17
Total Protein 5.3 g/dl (6.3-8.2) L 04/27/25 06:17
Albumin 3.2 g/dl (3.5-5.0) L 04/27/25 06:17
Physical Exam
-
Gen: NAD
Abd: soft, obese, mild tenderness, ND, non-peritoneal, incisions c/d/i - no erythema, ecchymosis or drainage
Patient has a munguia catheter: No
Patient has a central line: No
[2025-04-28 07:08] VITALS: BP 119/66
[2025-04-28 08:32] LABS: % Basophils 0.1 % (0-2); % Eosinophils 0.2 % (0-6); % Immature Granulocytes 0.4 % (0-0.5); % Lymphocytes 20.1 % (20.5-51.1); % Monocytes 9.5 % (1.7-9.3); % Neutrophils 69.7 % (42.2-75.2); Absolute Lymphocytes 1.8 10^3/uL (1.2-3.4); Absolute Monocytes 0.9 10^3/uL (0.1-0.6); Absolute Neutrophils 6.3 10^3/uL (1.4-6.5); Mean Corp Hgb Conc. 32.4 g/dL (33.0-37.0); Mean Corpuscular Hgb 30.2 pg (27.0-31.0); Mean Corpuscular Volume 93.2 fL (81.0-99.0); Mean Platelet Volume 9.6 fL (7.4-10.4); Nucleated Red Blood Cells % 0 %; Platelet Count 210 10^3/uL (130-400); Red Blood Cell Count 3.97 10^6/uL (4.20-5.40); Red Cell Dist. Width 12.4 % (11.5-14.5)
[2025-04-28 09:36] LABS: ALT (SGPT) 171 U/L (0-35); AST (SGOT) 48 U/L (14-36); Albumin 3.3 g/dl (3.5-5.0); Alkaline Phosphatase 148 U/L (38-126); Blood Urea Nitrogen 11 mg/dl (7-17); Carbon Dioxide 30 mmol/L (22-30); Chloride 109 mmol/L (98-107); Estimated Creatinine Clearance 98 ml/min; Glucose 91 mg/dl (70-99); Lipase 44 U/L (23-300); Potassium 4.6 mmol/L (3.5-5.1); Sodium 142 mmol/L (135-145); Total Bilirubin 0.7 mg/dl (0.2-1.3); Total Protein 5.6 g/dl (6.3-8.2); eGFR > 60.00
[2025-04-28] MEDS: VITAMIN C 1000 MG PO (10:00)
[2025-04-28] MEDS: CLARITIN 10 MG PO (10:00)
[2025-04-28] MEDS: COZAAR 25 MG PO (10:00)
[2025-04-28] MEDS: ASPIR LOW (ENTERIC COATED) 81 MG PO (10:00)
[2025-04-28] MEDS: PERCOCET 5/325 1 TABLET PO (10:04)
--- NOTE | 2025-04-28 10:57 | W.PN.HOSP.TC ---
Today's Communication/Plan
-
dc to home
Assessment / Plan
Assessment / Plan
Sudden onset RUQ abdominal pain with elevated LFT's
Concern for Choledocholithiasis
WBC 11.9-->6.3-->9.0k
Bili 1.6-->0.7-->0.8-->0.7
AST 702-->299-->97-->48
ALT 412-->351-->241-->171
Alk Phos 163-->138-->154-->148
improving LFT's, consistent with passed stone
Has been cleared by surgery to be dc now
MRI with MRCP: Small foci of decreased T2-weighted signal within the dependent posterior portion of the gallbladder, compatible with small stones and sludge or sludge.
Thin rim of increased T2-weighted signal surrounding the gallbladder lumen, compatible with gallbladder wall thickening and/or pericholecystic edema. In the correct clinical setting, these findings are suggestive of acute cholecystitis.
No evidence for biliary ductal dilation. The common bile duct measures up to 5.5 mm. There is no evidence for bile duct calculus.
Bilateral renal cysts, mainly central parapelvic cysts.
CT abd: Cannot exclude some minimal high attenuation density in the gallbladder such as sludge and/or tiny stones. Please see separate concurrent Limited Abdominal Ultrasound report. No findings to suggest biliary tract dilatation.
Mild hepatomegaly with possible mild diffuse fatty liver.
Bilateral renal cysts and subcentimeter low-attenuation renal lesions too small to characterize.
Distal colonic diverticulosis.
Abd US: Low level echogenic material within the gallbladder compatible with sludge and/or tiny stones. No gallbladder wall thickening or biliary tract dilatation. Negative sonographic Hooker's sign.
Mild hepatomegaly with possible mild diffuse fatty liver.
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
lost ~100 lbs and gained back 15-30 lbs since
S/P Rt hip and knee replacement
P:dc to home
empiric abx, can be stopped as per Dr. Collins
Full code
see dictated note
Anticipated Discharge: Today
Subjective/Interval History
-
Date of Service: April 28, 2025
Minimal pain, states she doesn't think she will need narcotic analgesics
Objective Data
-
Labs:
Laboratory Results
04/28/25
07:47
WBC 9.0
Hgb 12.0
Hct 37.0
Plt Count 210
Sodium 142
Potassium 4.6
Chloride 109 H
Carbon Dioxide 30
BUN 11
Creatinine 0.6
Glucose 91
Calcium 9.0
Total Bilirubin 0.7
AST 48 H
ALT 171 H
Alkaline Phosphatase 148 H
Vital Signs:
Vital Signs
Temp Pulse Resp BP Pulse Ox
98.5 F 70 16 119/66 95
04/28/25 07:08 04/28/25 07:08 04/28/25 07:08 04/28/25 07:08 04/28/25 07:08
I&O
04/27/25 04/28/25 04/29/25
06:59 06:59 06:59
Intake Total 2660 / 2660 530 / 530
Balance 2660 / 2660 530 / 530
Review of Systems
-
History Source: Patient and Coordinated Provider
Constitutional: Denies Fever
EENT: Reports No Symptoms Reported
Respiratory: Reports No Symptoms
Cardiac: Reports No Symptoms
Abdomen/GI: Reports Abdominal Pain (better now, none currently); Denies Nausea, Vomiting or Diarrhea
Genitourinary: Reports No Symptoms
Musculoskeletal: Reports No Symptoms
Neuro: Reports No Symptoms
Physical Exam
-
General: Well Developed, Well Nourished and No Apparent Distress
HEENT: Normocephalic, Atraumatic and Moist Mucous Membranes
Respiratory: Clear to Auscultation; Negative Wheezes, Rales or Rhonchi
Cardiac: Regular Rhythm and S1/S2
GI: Soft and Nontender (none currently, was tender on arrival in ER)
Genito-urinary: No Costovertebral Tender
Musculoskeletal: No Clubbing, No Cyanosis and No Edema
Neuro: Awake, Alert and Oriented
--- NOTE | 2025-04-28 11:12 | W.DS.TRANS ---
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
-
Discharge Instructions:
Discharge Diagnosis/Procedures Laparoscopic cholecystectomy with intraoperative
cholangiogram
Diet Regular,Low Fat
Additional Diets If issues with bloating or diarrhea follow a low
-fat diet
Activity No strenuous activity
Additional Activity No heavy lifting (>20 lbs) or strenuous
activities for 3 weeks postoperatively
Driving Restrictions No driving if too sore or taking narcotics
Bathing Restrictions OK to Shower
Blood Work CBC, CMP in 1 week
Wound Care Keep incisions clean and dry. Glue will flake
off in 2 to 3 weeks. Stitches will dissolve.
Use ice to the abdomen to reduce any bruising or
swelling.
Instructions:
Stand-Alone Forms:
Changes to Home Medications: Yes
Discharge Medications:
DC Medications w/original date entered in [employer]
ascorbic acid (vitamin C) 1,000 mg tablet (Vitamin C) 1,000 mg PO DAILY Supplement 04/25/25
aspirin 81 mg tablet,delayed release 81 mg PO DAILY Blood Clot Prevention/Tx 04/25/25
atorvastatin 40 mg tablet 40 mg PO DAILY High Cholesterol 04/25/25
calcium 600 mg (as carbonate)-vitamin D3 5 mcg (200 unit) tablet 1 tab PO DAILY Supplement 04/25/25
cyanocobalamin (vitamin B-12) 500 mcg tablet (Vitamin B-12) 500 mcg PO Q48H Supplement 04/25/25
diphenhydramine HCl 25 mg capsule (ZzzQuil) 25 mg PO HS Sleep 04/25/25
famotidine 20 mg tablet (Pepcid) 20 mg PO DAILY Gastrointestinal Issue 04/25/25
ferrous sulfate 325 mg (65 mg iron) tablet 325 mg PO DAILY Supplement 04/25/25
fluticasone propionate 50 mcg/actuation nasal spray,suspension 1 spray intranasal DAILY Congestion 04/25/25
gabapentin 100 mg capsule 300 mg PO HS Pain 04/25/25
loratadine 10 mg tablet 10 mg PO DAILY Allergies 04/25/25
losartan 25 mg tablet 25 mg PO DAILY Blood Pressure 04/25/25
multivitamin-ferrous fumarate-folic acid 18 mg-400 mcg tablet (Centrum) 1 tab PO DAILY Supplement 04/25/25
vitamin E 100 unit tablet 180 unit PO DAILY Supplement 04/25/25
acetaminophen 325 mg tablet 650 mg (2 x 325 mg) PO Q4HPRN PRN mild pain #1 tab 04/27/25
oxycodone 5 mg tablet 5 mg PO Q4HPRN PRN breakthrough/severe pain #10 tabs 04/27/25
Home Medication Changes
as needed Percocet ordered by surgery
Pending Results: Yes (surgical pathology)
[2025-04-28 11:23] VITALS: BP 112/64
--- NOTE | 2025-04-28 11:45 | CM ---
CM spoke with patient via phone to discuss discharge plan; reported that daughter will transport home
Plan: discharge to home today; no needs
== END 2025-04-28 12:09 | disposition home or self-care (01) | DRG 419 ==
LOC: 2 SOUTH 11:27
PROVIDERS: Surgery; ADMITTING PHYSICIAN Internal Medicine; CONSULT PHYSICIAN Surgery; EMERGENCY PHYSICIAN Emergency Medicine; FAMILY PHYSICIAN Registered Nurse
PROC: 0FT44ZZ Resection of Gallbladder, Percutaneous Endoscopic Approach (ICD-10-PCS; 2025-04-27)
PROC: BF101ZZ Fluoroscopy of Bile Ducts using Low Osmolar Contrast (ICD-10-PCS; 2025-04-27)
DX: K80.62 Calculus of gallbladder and bile duct with acute cholecystitis without obstruction (principal); K66.0 Peritoneal adhesions (postprocedural) (postinfection); E66.01 Morbid (severe) obesity due to excess calories; Z98.84 Bariatric surgery status; Z68.39 Body mass index [BMI] 39.0-39.9, adult; I10 Essential (primary) hypertension; E78.00 Pure hypercholesterolemia, unspecified; Z79.82 Long term (current) use of aspirin; Z79.899 Other long term (current) drug therapy; Z96.659 Presence of unspecified artificial knee joint
CPT/HCPCS: 88304; 74177; 74183; 74300; 76000; 76705; 80053; 83690; 85025; 85027; 93005; 96361; 96365; 96374; 96375; 99285; A4300; Q9967